=== PATIENT | female | born 1985 | race Caucasian/White ===

== ENCOUNTER 2017-04-14 01:08 | Emergency (ER) | payer MEDICAID ==
[2017-04-14] MEDS ORDERED: LIDOCAINE 2% 10 ML MDV SUBQ STA (01:22)
[2017-04-14 01:33] VITALS: BP 115/78
[2017-04-14] MEDS ORDERED: BACITRACIN OINT TOP STA (02:35)
--- NOTE | 2017-04-14 02:38 | ED Physician Documentation ---
PD HPI LOWER EXT INJURY - Stated complaint Stated Complaint: RT LEG LACERATION - Chief complaint Chief Complaint: Laceration - History of Present Illness PD HPI LOW EXT INJURY LOCATION: Right, Upper leg Type of injury: Laceration Where injury occurred: Home Timing - onset: Today Timing - details: Abrupt onset Worsened by: Moving, Palpating Similar symptoms before: Has not had sx before Recently seen: Not recently seen - Additional information Additional information: Patient is a 31 year old female with no significant past medical history who is presenting to the emergency department for right leg laceration. patient states that it got cut on a broken beer glass earlier this evening. patient states that she is up to date with her tetanus. Review of Systems Constitutional: reports: Reviewed and negative Eyes: reports: Reviewed and negative Ears: reports: Reviewed and negative Nose: reports: Reviewed and negative Throat: reports: Reviewed and negative Cardiac: reports: Reviewed and negative Respiratory: reports: Reviewed and negative GI: reports: Reviewed and negative : reports: Reviewed and negative Skin: reports: Laceration (s) Musculoskeletal: reports: Extremity pain Neurologic: denies: Focal weakness, Numbness Immunocompromised: denies: Immunocompromised PD PAST MEDICAL HISTORY - Past Medical History Past Medical History: No Cardiovascular: None Respiratory: None Neuro: None Endocrine/Autoimmune: None GI: None SPEECH LANGUAGE SPECIALIST: None : None HEENT: None Psych: None Musculoskeletal: None Derm: None - Past Surgical History Past Surgical History: No - Present Medications Home Medications: Ambulatory Orders Medication Instructions Recorded Confirmed No Known Home Medications [No 04/14/17 04/14/17 Known Home Medications] - Allergies Allergies/Adverse Reactions: Allergies Allergy/AdvReac Type Severity Reaction Status Date / Time No Known Drug Allergies Allergy Verified 04/14/17 01:14 - Social History Does the pt smoke?: No Smoking Status: Never smoker Does the pt drink ETOH?: Yes Does the pt have substance abuse?: No - Immunizations Immunizations are current?: Yes - POLST Patient has POLST: No PD ED PE NORMAL - Vitals Vital signs reviewed: Yes - General General: Alert and oriented X 3, No acute distress - HEENT HEENT: Atraumatic, PERRL - Cardiac Cardiac: RRR, No murmur - Respiratory Respiratory: No respiratory distress - Abdomen Abdomen: Soft, Non tender, Non distended - Neuro Neuro: Alert and oriented X 3, No motor deficit, No sensory deficit, Normal speech Eye Opening: Spontaneous Motor: Obeys Commands Verbal: Oriented GCS Score: 15 PD ED PE EXPANDED - Derm Derm: Laceration(s) (8cm laceration of posterior lateral right leg) - Extremities Extremities: Laceration, Right thigh (right posterior lateral thigh) Results - Vitals Vitals: Vital Signs - 24 hr 04/14/17 04/14/17 01:11 01:40 Temperature 36.3 C L Heart Rate 78 Respiratory 18 18 Rate Blood Pressure 115/78 O2 Saturation 98 Oxygen O2 Source Room air Procedures - Laceration (location) right leg Length in cm: 8 Wound type: Linear Neurovascular status: Sensory intact, Vascular intact Anesthesia: Lidocaine 2% Wound Preparation: Chlorhexadine, Irrigated copiously NS Skin layer closure: Nylon, Size #-0 - enter number (4), Sutures - enter # (10) Other: Patient tolerated well, No complications, Neurovascular intact, Dressing applied, Tetanus UTD Complexity: Simple PD MEDICAL DECISION MAKING - ED course Complexity details: reviewed old records, reviewed results, re-evaluated patient , considered differential, d/w patient ED course: Patient was seen and examined at bedside. patient's wound was cleaned and repaired as described above. Patient required no further work up was stable for discharge with outpatient follow up. Departure - Departure Disposition: 01 Home, Self Care Clinical Impression: Laceration Condition: Good Instructions: ED Laceration All Follow-Up: primary,care provider [Other] - Within 1 week Comments: You should keep your wound clean and dry. You can wash it with regular soap and water and apply topical antibiotics. You should let it dry out if your are at home, but cover it up in the early stages if your are going out. You will need to follow up with your doctor in about 10 days for suture removal. You can take motrin or tylenol as needed for pain. You may return to the emergency department at any time for new, worsening or uncontrollable symptoms. Forms: Activity restrictions
== END 2017-04-14 02:57 | disposition home or self-care (01) ==
LOC: ED 01:08
DX: S71.111A Laceration without foreign body, right thigh, initial encounter (principal); W25.XXXA Contact with sharp glass, initial encounter; Y92.009 Unspecified place in unspecified non-institutional (private) residence as the place of occurrence of the external cause
CPT/HCPCS: 12004; 99283; A9270